=== PATIENT | female | born 1995 | race Caucasian/White ===

== ENCOUNTER 2020-06-27 09:47 | Emergency (ER) | payer MEDICAID ==
[~2020-06-27] VITALS: Ht 170.2 cm; Wt 71.6 kg
[2020-06-27 09:52] VITALS: BP 131/77
--- NOTE | 2020-06-27 10:15 | NUR ---
Assumed care of patient. C/O left ear pain and decreased hearing. Also has C/O a reoccurance of LBP radiating down the back of both legs. Reports difficulty lifting 2 month old baby. NAD. Will continue to monitor.
--- NOTE | 2020-06-27 11:07 | NUR ---
Patient/Caregiver given discharge instructions and they have confirmed that they understand the instructions. Patient ambulatory with steady gait.
== END 2020-06-27 11:08 | disposition home or self-care (01) ==
LOC: ED 10:32
DX: H66.91 Otitis media, unspecified, right ear (principal); H60.501 Unspecified acute noninfective otitis externa, right ear; M54.42 Lumbago with sciatica, left side
CPT/HCPCS: 99283

== ENCOUNTER 2021-01-26 11:26 | Emergency (ER) | payer MEDICAID ==
[~2021-01-26] VITALS: Ht 170.2 cm; Wt 73.3 kg
[2021-01-26 12:15] LABS: BASOPHILS % (AUTO) 0 % (0-1); EOSINOPHILS % (AUTO) 0 % (1-7); LYMPHOCYTES % (AUTO) 11 % (22-44); MEAN CORPUSCULAR HEMOGLOBIN 32.9 pg (27.0-34.8); MEAN CORPUSCULAR HGB CONC 34.2 g/dL (32.4-35.8); MEAN PLATELET VOLUME 9.3 fL (7.4-10.4); MONOCYTES % (AUTO) 7 % (2-9); NEUTROPHILS % (AUTO) 82 % (42-75); PLATELET COUNT 167 x10^3/uL (130-400); RED BLOOD COUNT 4.84 x10^6/uL (3.82-5.3); RED CELL DISTRIBUTION WIDTH 13.1 % (9.6-15.2)
[2021-01-26] MEDS ORDERED: ONDANSETRON 2MG/ML, 2ML ONE (12:28)
[2021-01-26] MEDS ORDERED: FAMOTIDINE 20 MG/2 ML ONE (12:29)
[2021-01-26 12:31] LABS: ALANINE AMINOTRANSFERASE 59 U/L (12-78); ALBUMIN 3.6 g/dL (3.4-5.0); ANION GAP 7 mmol/L (5-15); CALCIUM 8.1 mg/dL (8.5-10.1); CHLORIDE 106 mmol/L (98-107); CREATININE 0.71 mg/dL (0.55-1.02)
[2021-01-26 12:36] VITALS: BP 114/77
[2021-01-26 12:36] LABS: ALKALINE PHOSPHATASE 99 U/L (45-117); BILIRUBIN,TOTAL 0.2 mg/dL (0.2-1.0); TOTAL PROTEIN 7.5 g/dL (6.4-8.2)
[2021-01-26 12:41] LABS: MICROSCOPIC INDICATED
[2021-01-26] MEDS ORDERED: SODIUM CHLORIDE 0.9% 1,000ML IVBOLUS ONE (13:00)
[2021-01-26] MEDS ORDERED: FAMOTIDINE 20 MG/2 ML IVPush ONE (13:00)
[2021-01-26] MEDS ORDERED: ONDANSETRON 2MG/ML, 2ML IVPush ONE (13:00)
== END 2021-01-26 14:02 | disposition home or self-care (01) ==
LOC: ED 13:50
DX: U07.1 COVID-19 (principal); R10.84 Generalized abdominal pain; R11.2 Nausea with vomiting, unspecified; M79.10 Myalgia, unspecified site; R51.9 Headache, unspecified; R00.0 Tachycardia, unspecified; Z87.891 Personal history of nicotine dependence
CPT/HCPCS: 36415; 71045; 80053; 81001; 83690; 84703; 85025; 96361; 96374; 96375; 99284; J2405; J7030; U0003; U0005